=== PATIENT | female | born 1950 | race Caucasian/White ===

== ENCOUNTER → 2017-02-03 | Outpatient (CLI) | payer OTHER | LOC: FIMAGING 15:08 | PROVIDERS: ATTEND Orthopaedic Surgery | DX: M51.36 Other intervertebral disc degeneration, lumbar region (principal); K76.9 Liver disease, unspecified ==

== ENCOUNTER → 2017-02-17 | Outpatient (CLI) | payer OTHER ==
[~2017-02-17] MED LIST: IOPAMIDOL (ISOVUE-300) 100 ML BTL ONE
[2017-02-17 08:31] LABS: CREATININE 0.9 mg/dL (0.6-1.0); GLOMERULAR FILTRATION RATE > 60
== END ==
LOC: FIMAGING 07:49
PROVIDERS: ATTEND Neuromusculoskeletal Medicine & OMM
DX: K76.9 Liver disease, unspecified (principal); R91.1 Solitary pulmonary nodule
CPT/HCPCS: 74170; Q9967

== ENCOUNTER → 2017-05-26 | Outpatient (CLI) | payer OTHER | LOC: FIMAGING 12:16 | PROVIDERS: ATTEND Physical Medicine & Rehabilitation | DX: M25.552 Pain in left hip (principal); Z96.642 Presence of left artificial hip joint ==

== ENCOUNTER → 2018-02-07 | Outpatient (CLI) | payer OTHER | LOC: FIMAGING 12:00 | PROVIDERS: ATTEND Internal Medicine Pulmonary Disease | DX: Z09 Encounter for follow-up examination after completed treatment for conditions other than malignant neoplasm (principal); R91.8 Other nonspecific abnormal finding of lung field; R05 Cough; Z87.891 Personal history of nicotine dependence ==